=== PATIENT | male | born 1995 | race Caucasian/White ===

== ENCOUNTER 2017-02-08 17:12 | Emergency (ER) | payer OTHER ==
[~2017-02-08 17:12] MED LIST: Sodium Chloride Irrig Solution 250 ML BOT ONE
[2017-02-08] MEDS ORDERED: Adacel (T-DAP) 0.5 ML VIAL ONE (17:35)
[2017-02-08] MEDS ORDERED: Triple Antibiotic Oint 1 GM Packet ONE (17:35)
== END 2017-02-08 17:55 | disposition home or self-care (01) ==
LOC: MADERS 17:12
DX: S61.211A Laceration without foreign body of left index finger without damage to nail, initial encounter (principal); F17.220 Nicotine dependence, chewing tobacco, uncomplicated; W26.0XXA Contact with knife, initial encounter; Y93.89 Activity, other specified
CPT/HCPCS: 90471; 90715